=== PATIENT | male | born 1965 | race Two or more races ===

== ENCOUNTER 2023-01-10 21:05 | Emergency (ER) | payer MEDICAID, OTHER ==
[~2023-01-10] VITALS: Ht 180.3 cm; Wt 77.7 kg
[2023-01-10 21:44] LABS: Basophils # (auto) 0.1 10 ^3/uL (0-0.2); Basophils % (auto) 0.7 % (0.0-2.0); Eosinophils # (auto) 0.2 10 ^3/uL (0-0.8); Eosinophils % (auto) 2.8 % (0.0-7.0); Hematocrit 44.2 % (41.0-53.0); Hemoglobin 15.1 g/dL (13.5-17.5); Lymphocytes # (auto) 1.6 10 ^3/uL (0.4-5.4); Lymphocytes % (auto) 20.7 % (10.0-50.0); Mean Corpuscular Hemoglobin 32.9 pg (28.0-32.0); Mean Corpuscular Hgb Conc. 34.1 g/dL (32.0-36.0); Mean Corpuscular Volume 96.7 fL (80.0-100.0); Monocytes # (auto) 0.8 10 ^3/uL (0-1.3); Monocytes % (auto) 10.5 % (0.0-12.0); Neutrophils % (auto) 65.3 % (37.0-80.0); Red Blood Cells 4.57 10^6/uL (4.5-5.90); Red Cell Distribution Width 14.4 % (11.8-14.3); White Blood Cell 7.6 10^3/uL (4.4-10.8)
[2023-01-10 22:23] LABS: Blood Alcohol < 3.0 mg/dL (<10)
[2023-01-10 22:24] LABS: Creatine Kinase IFCC 70 U/L (46-171)
[2023-01-10 22:25] LABS: Alanine Aminotransferase 174 U/L (7-40); Albumin 4.5 g/dL (3.2-4.8); Alkaline Phosphatase 349 U/L (46-116); Anion Gap 8.1 (5-15); Aspartate Aminotransferase 64 U/L (13-40); Blood Urea Nitrogen 11 mg/dL (9-23); Calcium 9.3 mg/dL (8.7-10.4); Carbon Dioxide 22.9 mmol/L (20-30); Chloride 107 mmol/L (98-107); Glucose 192 mg/dL (74-106); Lipase 71 U/L (12-53); Potassium 3.8 mmol/L (3.5-5.1); Sodium 138 mmol/L (136-145)
[2023-01-10 22:26] LABS: Bilirubin, Total 12.4 mg/dL (0.2-1.0); Total Protein 7.6 g/dL (5.7-8.2)
[2023-01-10 22:36] LABS: BUN/Creatinine Ratio 13.9 (10.0-20.0)
[2023-01-10 22:37] LABS: Urine Bacteria NONE SEEN /hpf (None Seen); Urine Blood TRACE /uL (Negative); Urine Clarity Clear (Clear); Urine Color Brown (Yellow); Urine Hyaline Cast FEW /lpf (0 - 2); Urine Mucus FEW (None Seen); Urine Protein, UAD 1+ (Negative); Urine Specific Gravity 1.023 (1.001-1.035); Urine WBC 6 /hpf (0 - 3)
[2023-01-11 02:08] VITALS: PULSE 79; RESP 16; O2SAT 99
[2023-01-11] MEDS ORDERED: ONDANSETRON HCL 4 MG/2 ML VIAL IV ONE (02:15)
[2023-01-11 03:59] VITALS: TEMP 98.2; O2SAT 99
[2023-01-11] MEDS ORDERED: fentaNYL CITRATE 100 MCG/2 ML VL IV ONE (04:00)
[2023-01-11 04:08] VITALS: BP 134/80; PULSE 63; RESP 20
== END 2023-01-11 04:41 | disposition short-term general hospital (02) ==
LOC: ER 21:05
DX: E80.6 Other disorders of bilirubin metabolism (principal); R17 Unspecified jaundice
CPT/HCPCS: 36415; 74176; 80053; 80320; 81001; 82550; 83605; 83690; 83735; 84484; 85025; 93005; 96374; 96375; 99285; J2405; J3010